=== PATIENT | female | born 1995 | race Caucasian/White ===

== ENCOUNTER → 2017-01-27 01:05 | Emergency (ER) | payer OTHER ==
[~2017-01-27 01:05] MED LIST: NS 0.9% 1000 ML* 1,000 ML IV ONE; Ondansetron INJ* 2 MG/ML VIAL IV ONE
[2017-01-27 08:29] VITALS: BP 152/99
--- NOTE | 2017-01-28 00:40 | ED ---
Kashmir Rivera Angela, scribed for Lillian Noel MD on 01/27/17 at 0126 . Substance Abuse/Use - HPI Summary HPI Summary: This pt is a 21 y/o female BIBA presenting to [facility] for alcohol intoxication. Pt presents with vomiting. When asked if she is feeling pain she denies it. She denies any PSHx or any PMHx. Pt denies tobacco use. HPI is limited due to level 5 caveat - alcohol intoxication. - History Of Current Complaint Stated Complaint: ETOH Hx Obtained From: Patient Hx From Patient Unobtainable Due To: Other - alcohol intoxication Onset/Duration of Drug/ETOH Abuse: Hours Ingestion History: Amount Ingested - unknown Overdose Characteristics: Oral Associated Signs And Symptoms: Nausea, Vomiting PMH/Surg Hx/FS Hx/Imm Hx Endocrine/Hematology History: Denies: Hx Diabetes Cardiovascular History: Denies: Hx Hypertension Infectious Disease History: Unable to Obtain/Confirm Infectious Disease History: Denies: Traveled Outside the [place] in Last 30 Days - Family History Known Family History: Positive: Unknown - d/t level 5 caveat - alcohol intoxication - Social History Occupation: Student Alcohol Use: Occasionally Hx Substance Use: No Substance Use Type: Reports: None Smoking Status (MU): Never Smoked Tobacco Review of Systems Negative: Fever, Chills Positive: Vomiting, Nausea All Other Systems Reviewed And Are Negative: No - Comments Additional Review of Systems Comments: ROS is limited due to level 5 caveat - alcohol intoxication Physical Exam Triage Information Reviewed: Yes Vital Signs On Initial Exam: Initial Vitals Temp Pulse Resp BP Pulse Ox 97.3 F 85 14 158/101 98 01/27/17 01:16 01/27/17 01:16 01/27/17 01:16 01/27/17 01:16 01/27/17 01:16 Vital Signs Reviewed: Yes Completion Of Physical Exam Limited Due To: Level 5 - alcohol intoxication Appearance: Positive: Well-Nourished Skin: Positive: Warm, Skin Color Reflects Adequate Perfusion, Dry Head/Face: Positive: Normal Head/Face Inspection Eyes: Positive: Normal ENT: Positive: Normal ENT inspection Neck: Positive: Supple, Nontender Respiratory/Lung Sounds: Positive: Clear to Auscultation, Breath Sounds Present Cardiovascular: Positive: Normal, RRR Abdomen Description: Positive: Nontender, Soft, Other: - Pt is vomiting Musculoskeletal: Positive: Normal Neurological: Positive: Normal, Sensory/Motor Intact, Alert, Oriented to Person Place, Time Psychiatric: Positive: Normal Diagnostics - Vital Signs Vital Signs Temp Pulse Resp BP Pulse Ox 01/27/17 01:16 97.3 F 85 14 158/101 98 - Laboratory Lab Statement: Any lab studies that have been ordered have been reviewed, and results considered in the medical decision making process. Course/Dx - Course Assessment/Plan: Pt is a 21 y/o female BIBA presenting to [facility] for alcohol intoxication. In the ED course, the pt was given IV fluids and Zofran. Serum alcohol of 257. Pt will be signed out to Dr. Tavares at shift change, pending disposition, awaiting MHE metabolism. - Diagnoses Provider Diagnoses: Alcohol intoxication Discharge - Discharge Plan Condition: Stable Disposition: OTHER Discharge Disposition Comment: signed out to Dr. Tavares, pending dispo, awaiting alcohol metabolism The documentation as recorded by the Kashmir flores Angela accurately reflects the service I personally performed and the decisions made by , Lillian Noel MD.
--- NOTE | 2017-01-28 18:39 | ED ---
Delma Rivera Thomas, scribed for Josh Tavares MD on 01/27/17 at 0735 . Progress - Progress Note Progress Note: The patient is a sign out from Dr. Noel at shit change pending ETOH metabolism. At re-evaluation at 07:23, the patient is sleeping comfortably. There is alcohol on her breath. Lungs are clear to auscultation bilaterally and the heart is regular rate and rhythm. The patient is alert and oriented x3, has normal cognition, and can ambulate normally. The patient will be discharged home with her friend, Marlin Gil, who is 21 years old and she is not intoxicated. The patient is hemodynamically stable and alert and oriented x3. The patient is diagnosed with alcohol intoxication. She will be discharged home. She is stable. Course/Dx - Diagnoses Provider Diagnoses: Alcohol intoxication The documentation as recorded by the Delma flores Thomas accurately reflects the service I personally performed and the decisions made by Chaitanya tobin Walter, MD.
== END ==
LOC: ED 01:05
DX: F10.129 Alcohol abuse with intoxication, unspecified (principal)
CPT/HCPCS: 36415; 80320; 96374; 99282; G0480; J2405